=== PATIENT | male | born 1970 | race Caucasian/White ===

== ENCOUNTER 2021-04-11 15:00 | Outpatient (RCR) | payer OTHER, SELFPAY ==
[2021-04-11 14:42] VITALS: BMI 44.5
[2021-04-11 14:43] VITALS: BMI 44.5
== END 2021-06-17 14:57 | disposition home or self-care (01) ==
LOC: ANHDMC 15:00
PROVIDERS: PCP Family Medicine; Visit Provider Internal Medicine Endocrinology, Diabetes & Metabolism
DX: E11.65 Type 2 diabetes mellitus with hyperglycemia (principal); Z71.89 Other specified counseling; Z71.3 Dietary counseling and surveillance
CPT/HCPCS: 97802; G0108

== ENCOUNTER → 2021-10-16 12:41 | Outpatient (CLI) | payer OTHER, SELFPAY ==
--- NOTE | ~2021-10-16 | MR_ITS ---
EXAMINATION: MR knee RT wo con DATE: 10/16/2021 13:45 INDICATION: Worsening generalized knee pain for one and half months. TECHNIQUE: Magnetic resonance imaging (MRI) of the right knee was performed without intravenous contr ast. Sequences included axial PD-weighted FS FSE, coronal PD-weighted FSE and PD-weighted FS FSE, sag ittal PD-weighted FSE, and sagittal T2-weighted FS FSE. COMPARISON: None. FINDINGS: Moderate motion artifact Medial compartment: Moderate diffuse cartilage loss. Degenerative meniscal signal change, volume loss, and displacement. Lateral compartment: Cartilage and meniscus intact. Patellofemoral compartment: Moderate thickness cartilage loss on the medial facet. Retinacula are intact. Ligaments and tendons: Abnormal signal superficial and deep to the mildly thickened MCL. ACL PCL and LCL are intact. Flexor tendons are intact. Fluid: Small volume joint fluid. Osseous/other: Minimal marrow edema in the lateral aspect of the medial femoral condyle, likely secondary to degener ative medial compartment change. More diffuse and confluent bone marrow edema present in the medial t ibial plateau, without linear signal abnormality to suggest fracture. IMPRESSION: Motion limited examination, within that constraint: 1. Medial tibial plateau bone contusion, without fracture. 2. Partial thickness MCL tear. 3. Moderate degenerative change in the medial compartment. 4. Small joint effusion. Reviewed, dictated and finalized at location K.
== END ==
PROVIDERS: PCP Physician Assistant Surgical; Visit Provider Physician Assistant Surgical
DX: M25.461 Effusion, right knee (principal)
CPT/HCPCS: 73721